=== PATIENT | male | born 1975 | race Caucasian/White ===

== ENCOUNTER 2024-01-14 19:29 | Inpatient (IN) | payer OTHER, MEDICAID, SELFPAY ==
[2024-01-14] VITALS (10 sets, daily range): BP systolic 117–136; BP diastolic 62–78; PULSE 99–114; RESP 17–24; TEMP 37.1–38.8; O2SAT 95–98; BMI 31.3
--- NOTE | 2024-01-14 19:49 | DI.RAD.S_ITS ---
PROCEDURE: XR CHEST 1V INDICATIONS: suspected sepsis TECHNIQUE: One view of the chest was acquired. COMPARISON: None. FINDINGS: Surgical changes and devices: Partially visualized cervical fixation plate. Lungs and pleura: Lungs are clear. No pleural effusions or pneumothorax. Mediastinum: Mediastinal contours appear normal. Heart size is normal. Bones and chest wall: No suspicious bony lesions. Overlying soft tissues appear unremarkable. IMPRESSION: No acute pulmonary process. Dictated by: Yaritza Marie M.D. on 01/14/2024 at 20:11 Approved by: Yaritza Marie M.D. on 01/14/2024 at 20:11
--- NOTE | 2024-01-14 20:00 | ED.SKABFB ---
HPI - Skin/Abscess/Foreign Bdy General Chief complaint: Skin/Abscess/Foreign Body Stated complaint: rt leg swelling, possible spider bites Time Seen by Provider: 01/14/24 19:46 Source: patient Mode of arrival: Wheelchair Limitations: no limitations History of Present Illness HPI narrative: 48-year-old male with history of marijuana use presents for right lower extremity swelling and pain. He states that approximately 2 weeks ago he thinks he may have been bitten by something. His leg has become progressively more painful and swollen and he was here today for evaluation. Found to be febrile in triage. Related Data Allergies Allergy/AdvReac Type Severity Reaction Status Date / Time No Known Drug Allergies Allergy Verified 01/14/24 19:40 Review of Systems Review of Systems Narrative: See HPI Patient History Social History household members: significant other Smoking Status: Never smoker alcohol intake: current Smoking Status: Never smoker Substance Use Type: does not use Exam Initial Vital Signs Initial Vital Signs: Vital Signs Temperature 102 F H 01/14/24 19:40 Pulse Rate 114 H 01/14/24 19:40 Respiratory Rate 18 01/14/24 19:40 Blood Pressure 136/78 01/14/24 19:40 Pulse Oximetry 98 01/14/24 19:40 Oxygen Delivery Method Room Air 01/14/24 19:40 Const: Awake, alert, ill-appearing, nontoxic Cardiac: Tachycardia, regular rhythm RESP: unlabored, clear bilaterally, no wheezing MSK: No deformity, palpable DP pulses, swelling of right lower extremity to knee, compartments soft Skin: Erythema and warmth extending to right knee Neuro: AO x3, CN II-XII grossly intact, moves all extremities Course Orders Ordered: ED Orders 01/14/24 19:49 XR chest 1V Stat EKG-12 Lead Stat RT Consult Eval and Treat NOW 01/14/24 20:15 Complete Blood Count AUTO DIFF Stat Comprehensive Metabolic Panel Stat Lactate (Lactic Acid) Stat Lipase Stat Procalcitonin Stat 01/14/24 20:40 Blood Culture Stat PTT Partial Thromboplastin Rogelio Stat Prothrombin Time INR Stat 01/14/24 21:50 Urine Drug Screen, Rapid Stat Acetaminophen (Acetaminophen 325 Mg Tablet) 650 mg PO Q6H PRN PRN Reason: Fever/Mild Pain (1-3) Calcium Carbonate (Calcium Carbonate 500 Mg Tab) 1,000 mg PO Q4HR PRN PRN Reason: Dyspepsia Enoxaparin Sodium (Enoxaparin 40 Mg/0.4 Ml Syringe) 40 mg SUBCUT DAILY MARY Ceftriaxone Sodium 1,000 mg/ (Sodium Chloride) 100 mls @ 200 mls/hr IV Q24H MARY Vancomycin HCl (Vancomycin) 1,250 mg in 250 mls @ 125 mls/hr IV Q12H MARY Magnesium Hydroxide (Magnesium Hydroxide 30 Ml Udc) 30 ml PO DAILY PRN PRN Reason: Constipation Naloxone HCl (Naloxone 0.4 Mg/Ml Vial) 0.2 mg IV Q2MIN PRN PRN Reason: Opiate Reversal Ondansetron HCl (Ondansetron 4 Mg Odt) 4 mg SL NOW PRN PRN Reason: Nausea And Vomiting Ondansetron HCl (Ondansetron 4 Mg/2 Ml Inj) 4 mg IV Q8HR PRN PRN Reason: Nausea And Vomiting Oxycodone HCl (Oxycodone Ir 5 Mg Tablet) 5 mg PO Q3H PRN PRN Reason: Pain, Moderate (4-6) Oxycodone HCl (Oxycodone Ir 10 Mg Tablet) 10 mg PO Q3H PRN PRN Reason: Pain, Severe (7-10) Vancomycin HCl (Vancomycin Per Pharmacy) 1 request MISC NOW PRN PRN Reason: cellulitis Discontinued Medications Sodium Chloride (Normal Saline 0.9%) 1,000 mls @ 1,000 mls/hr IV BOLUS ONE Stop: 01/14/24 20:48 Last Infusion: 01/14/24 21:52 Dose: Infused Documented By: Admin: 01/14/24 20:46 Dose: 1,000 mls/hr Documented By: LEA Ceftriaxone Sodium 2,000 mg/ (Sodium Chloride) 100 mls @ 200 mls/hr IV NOW ONE Stop: 01/14/24 19:50 Last Infusion: 01/14/24 21:27 Dose: Infused Documented By: Admin: 01/14/24 20:46 Dose: 200 mls/hr Documented By: LEA Vancomycin HCl/Dextrose (Vancomycin) 2,000 mg in 400 mls @ 200 mls/hr IV NOW ONE Stop: 01/14/24 21:49 Last Infusion: 01/15/24 00:09 Dose: Infused Documented By: Admin: 01/14/24 21:43 Dose: 200 mls/hr Documented By: LEA Acetaminophen (Ofirmev) 1,000 mg in 100 mls @ 400 mls/hr IV NOW ONE Stop: 01/14/24 21:21 Last Infusion: 01/14/24 21:44 Dose: Infused Documented By: Admin: 01/14/24 21:20 Dose: 400 mls/hr Documented By: LEA Ketorolac Tromethamine (Ketorolac 30 Mg/Ml Vial) 15 mg IV NOW ONE Stop: 01/14/24 21:08 Last Admin: 01/14/24 21:18 Dose: 15 mg Documented By: LEA Ondansetron HCl (Ondansetron 4 Mg/2 Ml Inj) 4 mg IV NOW PRN PRN Reason: Nausea And Vomiting Last Admin: 01/14/24 20:46 Dose: 4 mg Documented By: LEA Vital Signs Vital signs: Vital Signs - 8 hr 01/14/24 19:40 01/14/24 19:56 01/14/24 20:00 Temperature 102 F H Pulse Rate 114 H 103 H 107 H Respiratory Rate 18 18 Blood Pressure 136/78 Pulse Oximetry 98 98 96 Oxygen Delivery Method Room Air MDM - Skin/Abscess/Foreign Bdy Differential Diagnosis Differential diagnosis: Likely abscess of skin or subcutaneous tissue, viral exanthem and dermatophytosis Lab Data 01/14/24 20:15 01/14/24 20:15 Labs: Lab Results 01/14/24 01/14/24 01/14/24 Range/Units 20:15 20:40 21:50 WBC 14.0 H (4.5-11.0) X10^3/uL RBC 5.06 (4.5-5.9) X10^6/uL Hgb 15.3 (13.5-17.5) g/dL Hct 45.4 (41-53) % MCV 89.7 (80-100) fL MCH 30.2 (26-34) PG MCHC 33.6 (30-36) % RDW 13.8 (11.6-14.8) % Plt Count 228 (150-400) X10^3/uL Neut % (Auto) 89.5 H (50-75) % Lymph % (Auto) 3.8 L (25-40) % [place] % (Auto) 5.4 (3-14) % Eos % (Auto) 1.1 L (2-4) % Baso % (Auto) 0.2 (0-2) % Neut # (Auto) 79088 H (3129-8448) /uL Lymph # (Auto) 500 L (7208-6598) /uL [place] # (Auto) 800 (0-900) /uL Eos # (Auto) 100 (0-450) /uL Baso # (Auto) 0 (0-100) /uL PT 12.2 (9.4-12.5) SECONDS INR 1.1 (0.9-1.3) APTT 32 (25.1-36.5) SECONDS Sodium 140 (137-145) mmol/L Potassium 4.0 (3.4-5.1) mmol/L Chloride 105 (98-107) mmol/L Carbon Dioxide 29 (22-32) mmol/L BUN 21 H (9-20) mg/dL Creatinine 0.94 (0.66-1.25) mg/dL Estimated GFR > 60 (>60) mL/min BUN/Creatinine Ratio 22.3 H (6-22) Glucose 85 (70-100) mg/dL Lactate 1.4 (0.7-2.1) mmol/L Calcium 9.9 (8.4-10.2) mg/dL Total Bilirubin 1.0 (0.2-1.3) mg/dL AST 31 (17-59) IU/L ALT 21 (<50) IU/L Alkaline Phosphatase 79 (38-126) U/L Total Protein 7.4 (6.3-8.2) g/dL Albumin 5.0 (3.5-5.0) g/dL Globulin 2.4 (1.7-4.1) g/dL Albumin/Globulin Ratio 2.1 (1.0-2.8) Lipase 63 (23-300) U/L Procalcitonin 0.05 (<0.5) ng/mL Urine RBC None seen (0-5/HPF) Urine WBC None seen (0-5/HPF) Ur Squamous Epith Cells None seen (0-5/HPF) Urine Bacteria None seen (None) Ur Culture Indicated? Cult not indicated Vol Urine Centrifuged 10ml (spun) U Opiates 300ng/mL cut Negative (Negative) Ur Oxycodone Screen Negative (Negative) Urine Methadone Screen Negative (Negative) Ur Barbiturates Screen Negative (Negative) U Tricyclic Antidepress Negative (Negative) Ur Phencyclidine Scrn Negative (Negative) Ur Amphetamines Screen Negative (Negative) U Methamphetamines Scrn Negative (Negative) Ur MDMA Scrn (Ecstasy) Negative (Negative) U Benzodiazepines Scrn Negative (Negative) Urine Cocaine Screen Negative (Negative) U Marijuana (THC) Screen Positive H (Negative) Urine pH Normal (Normal) Urine Specific [place] Normal (Normal) Ur Creatinine Normal (Normal) Urine Dip Bedside Urine Glucose Negative Bedside Urine Bilirubin - Negative Bedside Urine Ketone +/- 5 Urine Specific [place] 1.015 Bedside Urine Occult Blood - Negative Bedside Urine pH 8.0 Bedside Urine Protein - Negative Bedside Urine Urobilinogen - Negative Bedside Urine Nitrite - Negative Bedside Urine Leukocytes - Negative Esterase MDM Narrative Medical decision making narrative: Two weeks of progressive lower extremity cellulitis. Patient has extensive cellulitic changes extending over the right lower extremity from his foot to his knee. Patient states he was pain up into his calf and groin which has been progressive over the last several days. Low suspicion for DVT based on presentation, this is much more consistent with a cellulitic picture. IV antibiotics ordered. Laboratory work is reviewed. Patient to be admitted for further treatment. Discharge Plan Departure Patient Disposition: Admitted As Inpatient Clinical Impression: Cellulitis Admit Date/Time: 01/14/24 21:53 Admit Provider: Jas Adhikari
[2024-01-14 20:30] LABS: Add Manual Diff / Slide Review NO; Basophils Absolute Auto 0 /uL (0-100); Basophils Percent Auto 0.2 % (0-2); Eosinophils Absolute Auto 100 /uL (0-450); Eosinophils Percent Auto 1.1 % (2-4); Hematocrit 45.4 % (41-53); Hemoglobin 15.3 g/dL (13.5-17.5); Lymphocytes Absolute Auto 500 /uL (1100-4500); Lymphocytes Percent Auto 3.8 % (25-40); Mean Corpuscular HGB Conc 33.6 % (30-36); Mean Corpuscular Hemoglobin 30.2 PG (26-34); Mean Corpuscular Volume 89.7 fL (80-100); Monocytes Absolute Auto 800 /uL (0-900); Monocytes Percent Auto 5.4 % (3-14); Neutrophils Absolute Auto 12600 /uL (1500-7000); Neutrophils Percent Auto 89.5 % (50-75); Platelet Count 228 X10^3/uL (150-400); Red Blood Cell Count 5.06 X10^6/uL (4.5-5.9); Red Cell Distribution Width 13.8 % (11.6-14.8)
[2024-01-14 20:36] LABS: Lactate (Lactic Acid) 1.4 mmol/L (0.7-2.1)
[2024-01-14 20:37] LABS: Alanine Aminotransferase 21 IU/L (<50); Albumin Globulin Ratio 2.1 (1.0-2.8); BUN Creatinine Ratio 22.3 (6-22); Blood Urea Nitrogen 21 mg/dL (9-20); Calcium 9.9 mg/dL (8.4-10.2); Carbon Dioxide 29 mmol/L (22-32); Chloride 105 mmol/L (98-107); Estimated Glomerular Filt Rate > 60 mL/min (>60); Globulin 2.4 g/dL (1.7-4.1); Glucose 85 mg/dL (70-100); Lipase 63 U/L (23-300); Sodium 140 mmol/L (137-145); Total Protein 7.4 g/dL (6.3-8.2)
[2024-01-14 20:38] LABS: Alkaline Phosphatase 79 U/L (38-126); Aspartate Aminotransferase 31 IU/L (17-59); HEMOLYSIS 77 (0-50)
[2024-01-14] MEDS: cefTRIAXone 2,000 MG in SODIUM CHLORIDE 0.9% 100 ML 200 MG IV (20:46)
[2024-01-14] MEDS: ONDANSETRON 4 MG/2 ML INJ IV (20:46)
[2024-01-14] MEDS: SODIUM CHLORIDE 0.9% 1,000 ML 1000 ML IV (20:46)
[2024-01-14 20:54] LABS: Procalcitonin 0.05 ng/mL (<0.5)
--- NOTE | 2024-01-14 20:57 | PC.NURSE ---
R LE with redness/swelling to knee. Pt report pain/tenderness extending up inner thigh to groin starting today.
[2024-01-14 21:02] LABS: INR 1.1 (0.9-1.3); Prothrombin Time 12.2 SECONDS (9.4-12.5)
[2024-01-14 21:04] LABS: PTT Partial Thromboplastin Tim 32 SECONDS (25.1-36.5)
[2024-01-14] MEDS: KETOROLAC 30 MG/ML VIAL 15 MG IV (21:18)
[2024-01-14] MEDS: ACETAMINOPHEN IV 1,000 MG/100 ML VIAL 400 MG IV (21:20)
[2024-01-14] MEDS: VANCOMYCIN 2,000 MG/400 ML PIGGYBACK 200 MG IV (21:43)
[2024-01-14 22:01] LABS: Ur Creatinine Normal (Normal); Ur Specific Gravity Normal (Normal); Urine pH Normal (Normal)
[2024-01-14 22:02] LABS: UR Morphine/Opiate cutoff 300 Negative (Negative); Urine Amphetamines Negative (Negative); Urine Barbiturates Negative (Negative); Urine Benzodiazepines Negative (Negative); Urine Cocaine Negative (Negative); Urine MDMA Negative (Negative); Urine Methadone Negative (Negative); Urine Methamphetamines Negative (Negative); Urine Oxycodone Negative (Negative); Urine Phencyclidine Negative (Negative); Urine Tetrahydrocannabinol Positive (Negative); Urine Tricyclic Antidepressant Negative (Negative)
[2024-01-14 22:10] LABS: Bacteria Urine None Seen; Culture Indicated Urine Cult Not Indicated; RBC Urine None Seen (0-5/HPF); Squamous Epithelial Cell Urine None Seen (0-5/HPF); Urine Volume 10mL (spun); WBC Urine None Seen (0-5/HPF)
--- NOTE | 2024-01-14 23:39 | P.HP_ITS ---
History of Present Illness History of Present Illness Date Patient Seen: 01/14/24 Time Patient Seen: 23:00 Chief complaint: rt leg swelling, possible spider bites Narrative: 48 y/o wo significant PMH, presented to ED with swollen, tender and erythematous RLE. Has several puncture wounds that he blames spiders for. Swelling appeared 2 weeks ago and gradually worsened. He had low grade fever, no chills. Admitted for IV abx. [facility] Social History household members: significant other Smoking Status: Never smoker alcohol intake: current Meds Home Medications and Allergies Allergies Allergy/AdvReac Type Severity Reaction Status Date / Time No Known Drug Allergies Allergy Verified 01/14/24 19:40 Review of Systems Constitutional Comments: fever. No chills Cardiovascular Comments: wo palpitations or chest pain Respiratory Comments: w/o SOB or cough Gastrointestinal Comments: w/o complaints Musculoskeletal Comments: RLE swelling, redness and pain Exam Vital Signs (past 8 hours): - 01/14/24 19:40 01/14/24 19:56 01/14/24 20:00 Temperature 102 F H Pulse Rate 114 H 103 H 107 H Respiratory Rate 18 18 Blood Pressure 136/78 Pulse Oximetry 98 98 96 Oxygen Delivery Method Room Air 01/14/24 22:07 Temperature Pulse Rate 103 H Respiratory Rate 17 Blood Pressure 117/62 Pulse Oximetry 95 Oxygen Delivery Method Room Air Oxygen Delivery Method Room Air Const Other: In no distress HENMT Other: normocephalic Eyes Other: marco Neck Other: supple Resp Other: normal respiratory effort Cardio Other: RRR GI Other: w/o distension Skin Other: erythema, circumferential, swelling, tenderness - RLE Psych Other: appropriate mood Objective Labs 01/15/24 04:35 01/15/24 04:35 Labs: Laboratory Results - last 24 hr 01/14/24 01/14/24 01/14/24 20:15 20:40 21:50 WBC 14.0 H RBC 5.06 Hgb 15.3 Hct 45.4 MCV 89.7 MCH 30.2 MCHC 33.6 RDW 13.8 Plt Count 228 Neut % (Auto) 89.5 H Lymph % (Auto) 3.8 L [place] % (Auto) 5.4 Eos % (Auto) 1.1 L Baso % (Auto) 0.2 Neut # (Auto) 62927 H Lymph # (Auto) 500 L [place] # (Auto) 800 Eos # (Auto) 100 Baso # (Auto) 0 PT 12.2 INR 1.1 APTT 32 Sodium 140 Potassium 4.0 Chloride 105 Carbon Dioxide 29 BUN 21 H Creatinine 0.94 Estimated GFR > 60 BUN/Creatinine Ratio 22.3 H Glucose 85 Lactate 1.4 Calcium 9.9 Total Bilirubin 1.0 AST 31 ALT 21 Alkaline Phosphatase 79 Total Protein 7.4 Albumin 5.0 Globulin 2.4 Albumin/Globulin Ratio 2.1 Lipase 63 Procalcitonin 0.05 Urine RBC None seen Urine WBC None seen Ur Squamous Epith Cells None seen Urine Bacteria None seen Ur Culture Indicated? Cult not indicated Vol Urine Centrifuged 10ml (spun) U Opiates 300ng/mL cut Negative Ur Oxycodone Screen Negative Urine Methadone Screen Negative Ur Barbiturates Screen Negative U Tricyclic Antidepress Negative Ur Phencyclidine Scrn Negative Ur Amphetamines Screen Negative U Methamphetamines Scrn Negative Ur MDMA Scrn (Ecstasy) Negative U Benzodiazepines Scrn Negative Urine Cocaine Screen Negative U Marijuana (THC) Screen Positive H Urine pH Normal Urine Specific [place] Normal Ur Creatinine Normal Assessment & Plan Assessment and plan (1) Cellulitis of right lower leg: Status: Acute Assessment & Plan narrative: RLE Cellulitis - elevate leg - Vancomycin, Rocephin - pain management - not septic but progressive and extensive, circumferential needs few doses of IV abx
[2024-01-15] VITALS (33 sets, daily range): BP systolic 111–141; BP diastolic 68–90; PULSE 78–101; RESP 15–33; TEMP 37–38.1; O2SAT 94–100
[2024-01-15] MEDS: OXYCODONE IR 5 MG TABLET PO ×2 (02:25→08:32)
[2024-01-15 04:45] LABS: Add Manual Diff / Slide Review NO; Basophils Absolute Auto 0 /uL (0-100); Basophils Percent Auto 0.2 % (0-2); Eosinophils Absolute Auto 0 /uL (0-450); Eosinophils Percent Auto 0.2 % (2-4); Hematocrit 42.3 % (41-53); Hemoglobin 14.2 g/dL (13.5-17.5); Lymphocytes Absolute Auto 500 /uL (1100-4500); Lymphocytes Percent Auto 3.4 % (25-40); Mean Corpuscular HGB Conc 33.6 % (30-36); Mean Corpuscular Hemoglobin 30.1 PG (26-34); Mean Corpuscular Volume 89.6 fL (80-100); Monocytes Absolute Auto 900 /uL (0-900); Monocytes Percent Auto 6.2 % (3-14); Neutrophils Absolute Auto 12900 /uL (1500-7000); Platelet Count 182 X10^3/uL (150-400); Red Blood Cell Count 4.73 X10^6/uL (4.5-5.9); White Blood Cell Count 14.4 X10^3/uL (4.5-11.0)
[2024-01-15 05:08] LABS: BUN Creatinine Ratio 18.5 (6-22); Blood Urea Nitrogen 17 mg/dL (9-20); Calcium 8.9 mg/dL (8.4-10.2); Carbon Dioxide 28 mmol/L (22-32); Chloride 109 mmol/L (98-107); Estimated Glomerular Filt Rate > 60 mL/min (>60); Glucose 115 mg/dL (70-100); HEMOLYSIS < 15 (0-50); Potassium 3.9 mmol/L (3.4-5.1); Sodium 140 mmol/L (137-145)
--- NOTE | 2024-01-15 07:17 | PM.PN.1 ---
Subjective Subjective Interval history: Admitting doctor: 48 y/o wo significant PMH, presented to ED with swollen, tender and erythematous RLE. Has several puncture wounds that he blames spiders for. Swelling appeared 2 weeks ago and gradually worsened. He had low grade fever, no chills. Admitted for IV abx. When positive blood culture, Gram-positive cocci in chains. Today: He denies history of MRSA, he notes his right leg had a spider bite about a week ago and he has now had redness and increased swelling over the lower leg below the knee. He would some tracking up the inside of the groin and tenderness to his lymph nodes. He has had some fevers. He denies a history of cellulitis. He does have athlete's foot with chronic excoriation in between multiple toes on the right foot and the top of the foot. He has not been treating this with any ointments or other remedies. He is otherwise healthy, denies drug or alcohol use. He lives in town with his girlfriend. Exam Vital Signs (past 8 hours): - 01/14/24 23:30 01/15/24 00:00 01/15/24 00:30 Temperature Pulse Rate 104 H 93 H 86 Respiratory Rate 24 17 23 Blood Pressure Pulse Oximetry Oxygen Delivery Method 01/15/24 01:00 01/15/24 01:30 01/15/24 02:28 Temperature 98.6 F Pulse Rate 78 78 89 Respiratory Rate 15 20 15 Blood Pressure 111/73 Pulse Oximetry 99 Oxygen Delivery Method 01/15/24 06:25 Temperature 99.1 F Pulse Rate 91 H Respiratory Rate 22 Blood Pressure 120/74 Pulse Oximetry 97 Oxygen Delivery Method Room Air Oxygen Delivery Method Room Air Narrative Exam Narrative: NAD, alert and oriented. Fluent speech. Lungs are clear, normal rate and effort. Heart is regular, no murmur gallop or rub. Abdomen is soft, non distended. Extremities: The right leg is swollen and red below the knee to the ankle. The foot is notable for excoriations in between multiple toe is from his tinea pedis. The leg is diffusely tender. There is no crepitus or focal fluctuance. It is scarlet like rash. He was have tenderness in the medial aspect of his right thigh. The left lower extremity is mildly erythematous below the knee. He is nontender. Objective Labs 01/15/24 04:35 01/15/24 04:35 Labs: Laboratory Results - last 24 hr 01/14/24 01/14/24 01/14/24 20:15 20:40 21:50 WBC 14.0 H RBC 5.06 Hgb 15.3 Hct 45.4 MCV 89.7 MCH 30.2 MCHC 33.6 RDW 13.8 Plt Count 228 Neut % (Auto) 89.5 H Lymph % (Auto) 3.8 L [place] % (Auto) 5.4 Eos % (Auto) 1.1 L Baso % (Auto) 0.2 Neut # (Auto) 67782 H Lymph # (Auto) 500 L [place] # (Auto) 800 Eos # (Auto) 100 Baso # (Auto) 0 PT 12.2 INR 1.1 APTT 32 Sodium 140 Potassium 4.0 Chloride 105 Carbon Dioxide 29 BUN 21 H Creatinine 0.94 Estimated GFR > 60 BUN/Creatinine Ratio 22.3 H Glucose 85 Lactate 1.4 Calcium 9.9 Total Bilirubin 1.0 AST 31 ALT 21 Alkaline Phosphatase 79 Total Protein 7.4 Albumin 5.0 Globulin 2.4 Albumin/Globulin Ratio 2.1 Lipase 63 Procalcitonin 0.05 Urine RBC None seen Urine WBC None seen Ur Squamous Epith Cells None seen Urine Bacteria None seen Ur Culture Indicated? Cult not indicated Vol Urine Centrifuged 10ml (spun) U Opiates 300ng/mL cut Negative Ur Oxycodone Screen Negative Urine Methadone Screen Negative Ur Barbiturates Screen Negative U Tricyclic Antidepress Negative Ur Phencyclidine Scrn Negative Ur Amphetamines Screen Negative U Methamphetamines Scrn Negative Ur MDMA Scrn (Ecstasy) Negative U Benzodiazepines Scrn Negative Urine Cocaine Screen Negative U Marijuana (THC) Screen Positive H Urine pH Normal Urine Specific [place] Normal Ur Creatinine Normal 01/15/24 04:35 WBC 14.4 H RBC 4.73 Hgb 14.2 Hct 42.3 MCV 89.6 MCH 30.1 MCHC 33.6 RDW 14.0 Plt Count 182 Neut % (Auto) 90.0 H Lymph % (Auto) 3.4 L [place] % (Auto) 6.2 Eos % (Auto) 0.2 L Baso % (Auto) 0.2 Neut # (Auto) 21271 H Lymph # (Auto) 500 L [place] # (Auto) 900 Eos # (Auto) 0 Baso # (Auto) 0 PT INR APTT Sodium 140 Potassium 3.9 Chloride 109 H Carbon Dioxide 28 BUN 17 Creatinine 0.92 Estimated GFR > 60 BUN/Creatinine Ratio 18.5 Glucose 115 H Lactate Calcium 8.9 Total Bilirubin AST ALT Alkaline Phosphatase Total Protein Albumin Globulin Albumin/Globulin Ratio Lipase Procalcitonin Urine RBC Urine WBC Ur Squamous Epith Cells Urine Bacteria Ur Culture Indicated? Vol Urine Centrifuged U Opiates 300ng/mL cut Ur Oxycodone Screen Urine Methadone Screen Ur Barbiturates Screen U Tricyclic Antidepress Ur Phencyclidine Scrn Ur Amphetamines Screen U Methamphetamines Scrn Ur MDMA Scrn (Ecstasy) U Benzodiazepines Scrn Urine Cocaine Screen U Marijuana (THC) Screen Urine pH Urine Specific [place] Ur Creatinine PFSH Social History household members: significant other Smoking Status: Never smoker alcohol intake: current Assessment & Plan Assessment & Plan narrative: 1. Right leg cellulitis, present on admission and active. 2. Possible strep bacteremia, present on admission and active 3. Obesity class 1 with BMI of 31, present on admission and active. Plan: -continue antibiotics, nares screen for MRSA. -elevate leg. Full resuscitation Proxy decision maker: Girlfriend, Rosa. Estimated date of discharge is January 15.
[2024-01-15] MEDS: ENOXAPARIN 40 MG/0.4 ML SYRINGE SUBCUT (08:25)
[2024-01-15] MEDS: VANCOMYCIN 1,500 MG/300 ML PIGGYBACK 200 MG IV ×2 (08:25→22:37)
[2024-01-15 10:48] LABS: MRSA (Nasal) PCR NOT DETECTED (Not Detect)
[2024-01-15 11:40] LABS: Acinetobacter calcoa-baumannii Not Detected (Not Detect); Bacteroides fragilis Not Detected (Not Detect); Candida albicans Not Detected (Not Detect); Candida auris Not Detected (Not Detect); Candida glabrata Not Detected (Not Detect); Candida krusei Not Detected (Not Detect); Candida parapsilosis Not Detected (Not Detect); Candida tropicalis Not Detected (Not Detect); Cryptococcus neoformans/gatti Not Detected (Not Detect); Enterobacter cloacae complex Not Detected (Not Detect); Enterobacterales Not Detected (Not Detect); Enterococcus faecalis Not Detected (Not Detect); Enterococcus faecium Not Detected (Not Detect); Haemophilus influenzae Not Detected (Not Detect); Klebsiella aerogenes Not Detected (Not Detect); Listeria monocytogenes Not Detected (Not Detect); Neisseria meningitidis Not Detected (Not Detect); Proteus species Not Detected (Not Detect); Pseudomonas aeruginosa Not Detected (Not Detect); Salmonella species Not Detected (Not Detect); Serratia marcescens Not Detected (Not Detect); Staphylococcus epidermidis Not Detected (Not Detect); Staphylococcus lugdunensis Not Detected (Not Detect); Staphylococcus species Not Detected (Not Detect); Stenotrophomonas maltophilia Not Detected (Not Detect); Streptococcus agalactiae (Gr B Not Detected (Not Detect); Streptococcus pneumonia Not Detected (Not Detect); Streptococcus pyogenes (Gr A) Not Detected (Not Detect); Streptococcus species Detected (Not Detect)
[2024-01-15] MEDS: ACETAMINOPHEN 325 MG TABLET 650 MG PO ×2 (13:59→20:14)
--- NOTE | 2024-01-15 14:40 | PC.NURSE ---
Day shift: In room from ED at approx 1440. A&Ox4. Calm and cooperative. Has been seen by Dr Bell. On contact for gram pos cocci. MRSA swap pending. VS WNL. RA 97%. RLE is red and Pt states he also has Athletes foot. Oriented to room and call light. Agrees to not get OOB w/o help from staff. Call light in reach.
[2024-01-15] MEDS: OXYCODONE IR 10 MG TABLET PO ×2 (14:42→20:14)
[2024-01-15 16:04] LABS: MRSA (Nasal) PCR NOT DETECTED (Not Detect)
[2024-01-15] MEDS: cefTRIAXone 1,000 MG in SODIUM CHLORIDE 0.9% 100 ML 200 MG IV (18:11)
[2024-01-16] VITALS: BP 120/84; PULSE 84; RESP 17; TEMP 37.1; O2SAT 96
[2024-01-16 04:00] VITALS: BP 140/81; PULSE 91; RESP 17; TEMP 37.3; O2SAT 95
[2024-01-16] MEDS: OXYCODONE IR 10 MG TABLET PO ×4 (04:47→20:37)
[2024-01-16] MEDS: ACETAMINOPHEN 325 MG TABLET 650 MG PO ×2 (04:47→13:48)
--- NOTE | 2024-01-16 06:01 | PC.NURSE ---
bilingual social worker: Patient is AxOx4, VSS, complaints of 7/10 pain in RLE relieved w/ ordered PO medications. RLE is red & edematous, leg is elevated. Temp is elevated at 99.2, tylenol given & ice pack placed. Able to reposition self in bed. Uses urinal independently. IV abx infused as ordered in right forearm. Oriented to call-light. Plan of care ongoing.
[2024-01-16 08:00] VITALS: BP 117/79; PULSE 68; RESP 20; TEMP 36.8; O2SAT 98
[2024-01-16 09:05] LABS: Add Manual Diff / Slide Review NO; Basophils Absolute Auto 0 /uL (0-100); Basophils Percent Auto 0.3 % (0-2); Eosinophils Absolute Auto 100 /uL (0-450); Eosinophils Percent Auto 1.1 % (2-4); Hematocrit 41.2 % (41-53); Lymphocytes Absolute Auto 800 /uL (1100-4500); Lymphocytes Percent Auto 11.7 % (25-40); Mean Corpuscular Hemoglobin 30.4 PG (26-34); Mean Corpuscular Volume 89.5 fL (80-100); Monocytes Absolute Auto 800 /uL (0-900); Monocytes Percent Auto 11.4 % (3-14); Neutrophils Absolute Auto 5400 /uL (1500-7000); Neutrophils Percent Auto 75.5 % (50-75); Platelet Count 175 X10^3/uL (150-400); Red Blood Cell Count 4.61 X10^6/uL (4.5-5.9); Red Cell Distribution Width 13.9 % (11.6-14.8); White Blood Cell Count 7.2 X10^3/uL (4.5-11.0)
[2024-01-16] MEDS: ENOXAPARIN 40 MG/0.4 ML SYRINGE SUBCUT (09:10)
[2024-01-16] MEDS: cefTRIAXone 2,000 MG in SODIUM CHLORIDE 0.9% 100 ML 200 MG IV (09:10)
[2024-01-16 09:16] LABS: BUN Creatinine Ratio 15.2 (6-22); Blood Urea Nitrogen 12 mg/dL (9-20); Carbon Dioxide 23 mmol/L (22-32); Chloride 108 mmol/L (98-107); Estimated Glomerular Filt Rate > 60 mL/min (>60); Glucose 87 mg/dL (70-100); HEMOLYSIS 38 (0-50); Sodium 134 mmol/L (137-145)
[2024-01-16 09:21] LABS: Vancomycin Trough 7.8 ug/mL (10-20)
[2024-01-16] MEDS: VANCOMYCIN TROUGH 1 REQUEST MISC (09:38)
[2024-01-16] MEDS: VANCOMYCIN 1,500 MG/300 ML PIGGYBACK 200 MG IV ×2 (10:01→17:36)
--- NOTE | 2024-01-16 10:55 | DI.US.S_ITS ---
PROCEDURE: US PERIPH VENOUS LOW EXTREM RT INDICATIONS: EDEMA TECHNIQUE: Real-time imaging, as well as color and pulse Doppler interrogation, were performed of the lower extremity deep veins from the inguinal ligament to the popliteal fossa, with documentation of the visualized calf veins. COMPARISON: None. FINDINGS: The common femoral, femoral, popliteal, and the visualized calf veins are normally compressible, and free of intraluminal thrombus. Color and pulse Doppler demonstrate normal phasic intraluminal flow. There is normal augmentation response to distal compression maneuver. IMPRESSION: No findings of lower extremity deep venous thrombosis. Dictated by: Abraham Jenkins M.D. on 01/16/2024 at 12:28 Approved by: Abraham Jenkins M.D. on 01/16/2024 at 12:28
--- NOTE | 2024-01-16 10:56 | P.PN_ITS ---
Subjective Subjective Date Patient Seen: 01/16/24 Time Patient Seen: 10:35 Interval history: Admitting doctor: 48 y/o wo significant PMH, presented to ED with swollen, tender and erythematous RLE. Has several puncture wounds that he blames spiders for. Swelling appeared 2 weeks ago and gradually worsened. He had low grade fever, no chills. Admitted for IV abx. Today: He notes his right leg looks a little more red and swollen and tender with streaking up the medial thigh. He has no history of cellulitis or MRSA. He is chronic right sided athlete's foot but feels that it was a spider bite on the right distal lateral ayon that precipitated this infection. He is chronic swelling on the left side from prior ankle surgery but no history of swelling on the right. No history of DVT. He is on DVT prophylaxis. Exam Vital Signs (past 8 hours): - 01/16/24 04:00 01/16/24 08:00 Temperature 99.2 F 98.2 F Pulse Rate 91 H 68 Respiratory Rate 17 20 Blood Pressure 140/81 117/79 Pulse Oximetry 95 98 Oxygen Flow Rate 0 0 Oxygen Delivery Method Room Air Oxygen Flow Rate 0 Narrative Exam Narrative: GENERAL: This is a well-nourished, well-developed patient, in no apparent distress. EYES: Pupils equal round and reactive. Extraocular motions intact. No scleral icterus. No injection or drainage. ENT: Mucous membranes pink and moist. NECK: Supple, nontender, no meningeal signs. CARDIOVASCULAR: Regular rate and rhythm without murmurs, gallops, or rubs. RESPIRATORY: Clear to auscultation. GASTROINTESTINAL: Abdomen soft, non-tender, nondistended. EXTREMITIES: 1+ right-sided edema, trace left-sided edema BACK: Nontender without deformity or crepitance. No flank tenderness. NEUROLOGIC: Alert, oriented, speech fluent, full upper and lower motor strength, no focal deficits evident. DERMATOLOGIC: Bright red florid rash with erythema and induration from the right ankle, where he has multiple excoriations in the right distal lateral ayon. He also has erythematous and excoriated change between the toes, though there is a clear gap of normal skin between this and his rash from the ankle, which extends to the proximal calf and ayon and notable for streaking and tenderness of the medial thigh. No right groin adenopathy. Objective Labs 01/16/24 08:50 01/16/24 08:22 Labs: Laboratory Results - last 24 hr 01/14/24 01/15/24 01/16/24 20:15 14:45 08:22 WBC RBC Hgb Hct MCV MCH MCHC RDW Plt Count Neut % (Auto) Lymph % (Auto) [place] % (Auto) Eos % (Auto) Baso % (Auto) Neut # (Auto) Lymph # (Auto) [place] # (Auto) Eos # (Auto) Baso # (Auto) Sodium 134 L Potassium 4.0 Chloride 108 H Carbon Dioxide 23 BUN 12 Creatinine 0.79 Estimated GFR > 60 BUN/Creatinine Ratio 15.2 Glucose 87 Calcium 9.0 Nasal Screen MRSA (PCR) Not detected Vancomycin Trough 7.8 L A.calcoaceticus-baumannii cmplx PCR Not detected Bacteroides fragilis Not detected Heavenly albicans (PCR) Not detected Heavenly auris (PCR) Not detected C. glabrata (PCR) Not detected C. krusei (PCR) Not detected C. parapsilosis (PCR) Not detected C. tropicalis (PCR) Not detected C. neoform/gattii (PCR) Not detected Enterobacterales (PCR) Not detected E. cloacae complex PCR Not detected Enterococc faecalis PCR Not detected Enterococc faecium PCR Not detected E. coli (PCR) Not detected H. influenzae (PCR) Not detected Klebsiella aerogenes (PCR) Not detected Klebsiella oxytoca PCR Not detected Klebsiella pneumoniae Not detected List. monocytogenes PCR Not detected N. meningitidis (PCR) Not detected Proteus species (PCR) Not detected Salmonella spp. (PCR) Not detected Serratia marcescens PCR Not detected Staphylococcus sp PCR Not detected Staph aureus (PCR) Not detected mecA/C & MREJ Resist Gene Not applicable mecA/C-Methicil Resis Gene Not applicable mcr-1 Col[place]in Res Gene PCR Not applicable Staph epidermidis (PCR) Not detected Staph lugdunensis PCR Not detected S. maltophilia (PCR) Not detected Streptococcus sp PCR Detected Group A Strep (PCR) Not detected Strep agalactiae (PCR) Not detected Strep pneumoniae (PCR) Not detected P. aeruginosa (PCR) Not detected Alexis/B-Vanco Res Genes Not applicable blaIMP Car res Gene PCR Not applicable KPC-Carbap Res Gene PCR Not applicable blaNDM Car Res Gene PCR Not applicable OXA-48 Carbapenem Resis Gene (PCR) Not applicable blaVIM Car Res Gene PCR Not applicable CTX-M Gene Resistance (PCR) Not applicable 01/16/24 08:50 WBC 7.2 RBC 4.61 Hgb 14.0 Hct 41.2 MCV 89.5 MCH 30.4 MCHC 34.0 RDW 13.9 Plt Count 175 Neut % (Auto) 75.5 H Lymph % (Auto) 11.7 L [place] % (Auto) 11.4 Eos % (Auto) 1.1 L Baso % (Auto) 0.3 Neut # (Auto) 5400 Lymph # (Auto) 800 L [place] # (Auto) 800 Eos # (Auto) 100 Baso # (Auto) 0 Sodium Potassium Chloride Carbon Dioxide BUN Creatinine Estimated GFR BUN/Creatinine Ratio Glucose Calcium Nasal Screen MRSA (PCR) Vancomycin Trough A.calcoaceticus-baumannii cmplx PCR Bacteroides fragilis Heavenly albicans (PCR) Heavenly auris (PCR) C. glabrata (PCR) C. krusei (PCR) C. parapsilosis (PCR) C. tropicalis (PCR) C. neoform/gattii (PCR) Enterobacterales (PCR) E. cloacae complex PCR Enterococc faecalis PCR Enterococc faecium PCR E. coli (PCR) H. influenzae (PCR) Klebsiella aerogenes (PCR) Klebsiella oxytoca PCR Klebsiella pneumoniae List. monocytogenes PCR N. meningitidis (PCR) Proteus species (PCR) Salmonella spp. (PCR) Serratia marcescens PCR Staphylococcus sp PCR Staph aureus (PCR) mecA/C & MREJ Resist Gene mecA/C-Methicil Resis Gene mcr-1 Colistin Res Gene PCR Staph epidermidis (PCR) Staph lugdunensis PCR S. maltophilia (PCR) Streptococcus sp PCR Group A Strep (PCR) Strep agalactiae (PCR) Strep pneumoniae (PCR) P. aeruginosa (PCR) Alexis/B-Vanco Res Genes blaIMP Car res Gene PCR KPC-Carbap Res Gene PCR blaNDM Car Res Gene PCR OXA-48 Carbapenem Resis Gene (PCR) blaVIM Car Res Gene PCR CTX-M Gene Resistance (PCR) [facility] Social History household members: significant other Smoking Status: Never smoker alcohol intake: current Assessment & Plan Assessment & Plan narrative: 1. Right leg cellulitis, present on admission and active. Increased swelling and pain noted on the right. Obtain ultrasound to rule out DVT. Negative screen for MRSA. 2. Blood culture preliminary positive for Gram-positive cocci, suspect contaminant (1 of 2 cultures) 3. Obesity class 1 with BMI of 31, present on admission and active. Plan: -continue antibiotics -ultrasound right leg, rule out DVT -elevate leg. -continued inpatient hospitalization indicated until significant improvement, then switch to oral antibiotic and outpatient therapy -his former primary care provider is in [place]. He will need a local primary care provider for follow-up COVID-19 COVID-19 status: Not tested [facility] - Meds 'Current medications' to include all prescriptions, [id number] products, herbals, cannabis/cannabidiol products, and vitamin/mineral/dietary (nutritional) supplements. I have utilized all available resources to obtain, update, or review the patient?s current medications. [If Yes, STOP here]: Yes PROFEE Charge codes Subsequent inpatient/observation care: 00635
[2024-01-16 12:00] VITALS: BP 128/88; PULSE 81; RESP 20; TEMP 36.9; O2SAT 98
--- NOTE | 2024-01-16 15:44 | CM.DANOTE ---
Patient is a 48 yo male who was admitted OBS Status on 01/14/24 for Cellulitis. Pt has ANURADHA MOREAU and THOMPSON for insurance and his PCP was in [place]. EMR was reviewed. Per MD, pt with possible spider bites and cellulitis from punctures and admitted for IV-Abx with plan of transition to PO abx at discharge. UDS+ for THC. SW met briefly bedside with pt and explained role and he confirms he moved up from [place] and lives with his girlfriend in [place] and pt is active and independent, works at the [employer], drives and does not use DME for ambulation. Pt does not anticipate any needs at d/c and preference is home with girlfriend and plans to establish with PCP locally. JESS Burr
[2024-01-16 16:00] VITALS: BP 126/80; PULSE 79; RESP 16; TEMP 37.1; O2SAT 99
[2024-01-16 20:16] VITALS: BP 129/86; PULSE 79; RESP 16; TEMP 37.2; O2SAT 98
[2024-01-16] MEDS: ONDANSETRON 4 MG/2 ML INJ IV (20:36)
[2024-01-17] VITALS (7 sets, daily range): BP systolic 122–135; BP diastolic 73–85; PULSE 65–79; RESP 16–19; TEMP 36.3–37.2; O2SAT 95–100
[2024-01-17] MEDS: VANCOMYCIN 1,500 MG/300 ML PIGGYBACK 200 MG IV ×3 (02:21→17:37)
[2024-01-17 04:47] LABS: Add Manual Diff / Slide Review NO; Basophils Absolute Auto 0 /uL (0-100); Basophils Percent Auto 0.5 % (0-2); Eosinophils Absolute Auto 200 /uL (0-450); Eosinophils Percent Auto 3.3 % (2-4); Hemoglobin 14.1 g/dL (13.5-17.5); Lymphocytes Absolute Auto 700 /uL (1100-4500); Lymphocytes Percent Auto 10.4 % (25-40); Mean Corpuscular HGB Conc 34.3 % (30-36); Mean Corpuscular Hemoglobin 30.7 PG (26-34); Mean Corpuscular Volume 89.5 fL (80-100); Monocytes Absolute Auto 600 /uL (0-900); Monocytes Percent Auto 8.7 % (3-14); Neutrophils Absolute Auto 5200 /uL (1500-7000); Neutrophils Percent Auto 77.1 % (50-75); Platelet Count 179 X10^3/uL (150-400); Red Blood Cell Count 4.58 X10^6/uL (4.5-5.9); Red Cell Distribution Width 14.1 % (11.6-14.8); White Blood Cell Count 6.8 X10^3/uL (4.5-11.0)
[2024-01-17 04:53] LABS: BUN Creatinine Ratio 15.1 (6-22); Blood Urea Nitrogen 13 mg/dL (9-20); Calcium 8.9 mg/dL (8.4-10.2); Carbon Dioxide 23 mmol/L (22-32); Chloride 107 mmol/L (98-107); Estimated Glomerular Filt Rate > 60 mL/min (>60); Glucose 99 mg/dL (70-100); HEMOLYSIS < 15 (0-50); Potassium 3.9 mmol/L (3.4-5.1); Sodium 136 mmol/L (137-145)
[2024-01-17] MEDS: OXYCODONE IR 10 MG TABLET PO ×2 (07:40→19:27)
[2024-01-17] MEDS: cefTRIAXone 2,000 MG in SODIUM CHLORIDE 0.9% 100 ML 200 MG IV (07:40)
[2024-01-17] MEDS: ENOXAPARIN 40 MG/0.4 ML SYRINGE SUBCUT (09:11)
--- NOTE | 2024-01-17 10:09 | PC.NURSE ---
Pt arousable A&O, states pain is a 7. Pain med given per orders. Reassess Pt gives it a 5. Pt taking b'fas, more talkative as the morning progresses.
[2024-01-17 10:16] LABS: Vancomycin Trough 12.5 ug/mL (10-20)
[2024-01-17] MEDS: VANCOMYCIN TROUGH 1 REQUEST MISC (11:00)
--- NOTE | 2024-01-17 15:46 | CM.DPC ---
DCP Continued Reviewed EMR and team rounds for pt?s medical status. PROCUREMENT BUYER entered room and introduced self and role. Pt was found, lying upright in bed, seemed guarded initially. PROCUREMENT BUYER discussed establishing PCP in area and pt stated that he already has a PCP in [place] (Dr. Lana Coffman at [facility]). Pt did not want to establish a new one today. Pt declined PROCUREMENT BUYER's offer of a link to [facility] primary care team at this time. Pt denied any pending discharge needs at this time. Plan: Pt to stay one more night for continued antibiotic treatment. CM Team will continue to follow for coordination of discharge plans. CATHERINE Gay
--- NOTE | 2024-01-17 15:51 | PM.PN.1 ---
Subjective Subjective Interval history: RLE still warm, red and swollen. Swelling has improved however and patient notes his calf is less taught. Exam Vital Signs (past 8 hours): - 01/17/24 08:00 01/17/24 12:00 Temperature 98.5 F 97.4 F L Pulse Rate 75 77 Respiratory Rate 19 17 Blood Pressure 126/82 125/73 Pulse Oximetry 97 98 Oxygen Delivery Method Room Air Oxygen Flow Rate 0 Narrative Exam Narrative: GENERAL: This is a well-nourished, well-developed patient, in no apparent distress. EYES: Pupils equal round and reactive. Extraocular motions intact. No scleral icterus. No injection or drainage. ENT: Mucous membranes pink and moist. NECK: Supple, nontender, no meningeal signs. CARDIOVASCULAR: Regular rate and rhythm without murmurs, gallops, or rubs. RESPIRATORY: Clear to auscultation. GASTROINTESTINAL: Abdomen soft, non-tender, nondistended. EXTREMITIES: 1+ right-sided edema, trace left-sided edema BACK: Nontender without deformity or crepitance. No flank tenderness. NEUROLOGIC: Alert, oriented, speech fluent, full upper and lower motor strength, no focal deficits evident. DERMATOLOGIC: Bright red florid rash with erythema and induration from the right ankle, where he has multiple excoriations in the right distal lateral ayon. He also has erythematous and excoriated change between the toes, though there is a clear gap of normal skin between this and his rash from the ankle, which extends to the proximal calf and ayon and notable for streaking and tenderness of the medial thigh. No right groin adenopathy. Objective Labs 01/17/24 04:25 01/17/24 04:25 Labs: Laboratory Results - last 24 hr 01/17/24 01/17/24 04:25 09:43 WBC 6.8 RBC 4.58 Hgb 14.1 Hct 41.0 MCV 89.5 MCH 30.7 MCHC 34.3 RDW 14.1 Plt Count 179 Neut % (Auto) 77.1 H Lymph % (Auto) 10.4 L [place] % (Auto) 8.7 Eos % (Auto) 3.3 Baso % (Auto) 0.5 Neut # (Auto) 5200 Lymph # (Auto) 700 L [place] # (Auto) 600 Eos # (Auto) 200 Baso # (Auto) 0 Sodium 136 L Potassium 3.9 Chloride 107 Carbon Dioxide 23 BUN 13 Creatinine 0.86 Estimated GFR > 60 BUN/Creatinine Ratio 15.1 Glucose 99 Calcium 8.9 Vancomycin Trough 12.5 PFSH Social History household members: significant other Smoking Status: Never smoker alcohol intake: current Assessment & Plan Assessment & Plan narrative: 1. Right leg cellulitis, present on admission and active. Increased swelling and pain noted on the right. Obtain ultrasound to rule out DVT. Negative screen for MRSA. 2. Blood culture preliminary positive for Gram-positive cocci, suspect contaminant (1 of 2 cultures) 3. Obesity class 1 with BMI of 31, present on admission and active. Plan: -continue antibiotics -no DVT on LE US -elevate leg. -continued inpatient hospitalization indicated until significant improvement, then switch to oral antibiotic and outpatient therapy -his former primary care provider is in [place]. He will need a local primary care provider for follow-up. Dispo: Home in 1-2 days. COVID-19 COVID-19 status: Not tested
[2024-01-17] MEDS: ACETAMINOPHEN 325 MG TABLET 650 MG PO (19:25)
[2024-01-18] MEDS: OXYCODONE IR 10 MG TABLET PO ×4 (01:12→19:59)
[2024-01-18] MEDS: VANCOMYCIN 1,500 MG/300 ML PIGGYBACK 200 MG IV (01:13)
[2024-01-18 04:31] VITALS: BP 112/74; PULSE 66; RESP 17; TEMP 36.8; O2SAT 96
[2024-01-18 05:21] LABS: Add Manual Diff / Slide Review NO; Basophils Absolute Auto 0 /uL (0-100); Basophils Percent Auto 0.7 % (0-2); Eosinophils Absolute Auto 200 /uL (0-450); Eosinophils Percent Auto 3.7 % (2-4); Hematocrit 41.6 % (41-53); Hemoglobin 14.2 g/dL (13.5-17.5); Lymphocytes Absolute Auto 1100 /uL (1100-4500); Mean Corpuscular HGB Conc 34.1 % (30-36); Mean Corpuscular Hemoglobin 30.5 PG (26-34); Mean Corpuscular Volume 89.3 fL (80-100); Monocytes Absolute Auto 800 /uL (0-900); Monocytes Percent Auto 13.7 % (3-14); Neutrophils Absolute Auto 3600 /uL (1500-7000); Neutrophils Percent Auto 62.9 % (50-75); Platelet Count 208 X10^3/uL (150-400); Red Blood Cell Count 4.65 X10^6/uL (4.5-5.9); Red Cell Distribution Width 13.7 % (11.6-14.8); White Blood Cell Count 5.8 X10^3/uL (4.5-11.0)
[2024-01-18 05:27] LABS: BUN Creatinine Ratio 16.5 (6-22); Blood Urea Nitrogen 14 mg/dL (9-20); Calcium 9.3 mg/dL (8.4-10.2); Carbon Dioxide 26 mmol/L (22-32); Chloride 106 mmol/L (98-107); Estimated Glomerular Filt Rate > 60 mL/min (>60); Glucose 95 mg/dL (70-100); HEMOLYSIS < 15 (0-50); Potassium 3.8 mmol/L (3.4-5.1); Sodium 138 mmol/L (137-145)
[2024-01-18 07:51] VITALS: BP 124/84; PULSE 74; RESP 20; TEMP 36.9; O2SAT 98
[2024-01-18] MEDS: ENOXAPARIN 40 MG/0.4 ML SYRINGE SUBCUT (09:49)
[2024-01-18] MEDS: cefTRIAXone 2,000 MG in SODIUM CHLORIDE 0.9% 100 ML 200 MG IV (09:49)
[2024-01-18] MEDS: ACETAMINOPHEN 325 MG TABLET 650 MG PO ×2 (09:59→16:13)
--- NOTE | 2024-01-18 11:32 | PC.NURSE ---
Addendum entered by Mary Malin R.N. 01/18/24 16:34: pt sitting up in bed talking on phone ,in no distress, right leg pain up to 710 again. medicated with tylenol and oxy Original Note: patient up to shower this am tolerated well, right leg cellulitis/spiderbite reddness has reduced per pt, elevated extremity and medicated with oxy 10mg po for pain 10, antibx infusing.
[2024-01-18 11:44] VITALS: BP 129/86; PULSE 79; RESP 20; TEMP 36.2; O2SAT 98
--- NOTE | 2024-01-18 11:55 | CM.DPC ---
Addendum entered by Rachel Franco R.N. 01/18/24 13:01: Called over at [facility], spoke to mervat Butt, about referral, she will update José Antonio tomorrow. Original Note: DCP Cont: Was informed by hospitalist today that patient most likely will need to be on IV ABO for two weeks, mentioned Rocephin q24 hours. Asked hospitalist who would follow, stated that most likely would be Dr. Baumann. Final cultures are still pending. He will be getting a PICC line. Met with patient in his room, briefly discussed longer term IV ABO. Stated, he was hoping to go home on oral ABO. Discussed the home meds, and [facility], indicating that they would run his medication through his insurance. Did also mention that they would provide the medications, and would do the teaching. Stated, he would discuss this further with his . His concerns are being able to go back to work. Let him know that this can be discussed with hospitalist, he is on his feet at work, indicated that his job is not strenous. P: Will go ahead and send this referral over to [facility], for review, will send the med list and see if they can run this through his insurance. Medication should be q 24 hours according to hospitalist. Rachel Franco RN/Consultant In [employer]
[2024-01-18 15:38] VITALS: BP 140/93; PULSE 82; RESP 16; TEMP 36.6; O2SAT 98
--- NOTE | 2024-01-18 18:50 | PM.PN.1 ---
Subjective Subjective Interval history: LE cellulitis slowly improving. Blood cultures growing group C strep. Spoke with ID and will need 2 weeks of IV abx. Exam Vital Signs (past 8 hours): - 01/18/24 11:44 01/18/24 15:38 Temperature 97.2 F L 97.8 F Pulse Rate 79 82 Respiratory Rate 20 16 Blood Pressure 129/86 140/93 H Pulse Oximetry 98 98 Oxygen Flow Rate 0 0 Oxygen Delivery Method Room Air Oxygen Flow Rate 0 Narrative Exam Narrative: GENERAL: This is a well-nourished, well-developed patient, in no apparent distress. EYES: Pupils equal round and reactive. Extraocular motions intact. No scleral icterus. No injection or drainage. ENT: Mucous membranes pink and moist. NECK: Supple, nontender, no meningeal signs. CARDIOVASCULAR: Regular rate and rhythm without murmurs, gallops, or rubs. RESPIRATORY: Clear to auscultation. GASTROINTESTINAL: Abdomen soft, non-tender, nondistended. EXTREMITIES: 1+ right-sided edema, trace left-sided edema BACK: Nontender without deformity or crepitance. No flank tenderness. NEUROLOGIC: Alert, oriented, speech fluent, full upper and lower motor strength, no focal deficits evident. DERMATOLOGIC: Improving cellulitis with erythema and induration from the right ankle, where he has multiple excoriations in the right distal lateral ayon. He also has erythematous and excoriated change between the toes, though there is a clear gap of normal skin between this and his rash from the ankle, which extends to the proximal calf and ayon and notable for streaking and tenderness of the medial thigh. No right groin adenopathy. Objective Labs 01/18/24 04:43 01/18/24 04:43 Labs: Laboratory Results - last 24 hr 01/18/24 04:43 WBC 5.8 RBC 4.65 Hgb 14.2 Hct 41.6 MCV 89.3 MCH 30.5 MCHC 34.1 RDW 13.7 Plt Count 208 Neut % (Auto) 62.9 Lymph % (Auto) 19.0 L [place] % (Auto) 13.7 Eos % (Auto) 3.7 Baso % (Auto) 0.7 Neut # (Auto) 3600 Lymph # (Auto) 1100 [place] # (Auto) 800 Eos # (Auto) 200 Baso # (Auto) 0 Sodium 138 Potassium 3.8 Chloride 106 Carbon Dioxide 26 BUN 14 Creatinine 0.85 Estimated GFR > 60 BUN/Creatinine Ratio 16.5 Glucose 95 Calcium 9.3 PFSH Social History household members: significant other Smoking Status: Never smoker alcohol intake: current Assessment & Plan Assessment & Plan narrative: 1. Right leg cellulitis, present on admission and active. Increased swelling and pain noted on the right. Negative screen for MRSA. 2. Group C strep bacteremia. / bottles positive. Spoke with ID and this is a real result likely from cellulitis. Will need 2 weeks IV rocephin. 3. Obesity class 1 with BMI of 31, present on admission and active. Plan: -repeat blood cultures negative at 24 hours -will need midline on 01/18 -setup outpatient IV abx for 2 weeks to finish on 01/30, then f/up with ID in clinic -no DVT on LE US -elevate leg. -his former primary care provider is in [place]. He will need a local primary care provider for follow-up. Dispo: Home in 1-2 days. COVID-19 COVID-19 status: Not tested
[2024-01-18 19:35] VITALS: BP 135/77; PULSE 85; RESP 19; TEMP 36.6; O2SAT 98
[2024-01-18 23:54] VITALS: BP 137/87; PULSE 77; RESP 17; TEMP 36.7; O2SAT 98
[2024-01-19 04:44] VITALS: BP 114/78; PULSE 79; RESP 16; TEMP 36.9; O2SAT 98
[2024-01-19 05:04] LABS: Add Manual Diff / Slide Review NO; Basophils Absolute Auto 100 /uL (0-100); Eosinophils Absolute Auto 200 /uL (0-450); Eosinophils Percent Auto 4.2 % (2-4); Hematocrit 43.4 % (41-53); Hemoglobin 14.8 g/dL (13.5-17.5); Lymphocytes Absolute Auto 1200 /uL (1100-4500); Lymphocytes Percent Auto 21.3 % (25-40); Mean Corpuscular HGB Conc 34.2 % (30-36); Mean Corpuscular Hemoglobin 30.2 PG (26-34); Mean Corpuscular Volume 88.3 fL (80-100); Monocytes Absolute Auto 700 /uL (0-900); Monocytes Percent Auto 12.4 % (3-14); Neutrophils Absolute Auto 3500 /uL (1500-7000); Neutrophils Percent Auto 61.1 % (50-75); Platelet Count 240 X10^3/uL (150-400); Red Blood Cell Count 4.92 X10^6/uL (4.5-5.9); Red Cell Distribution Width 13.7 % (11.6-14.8); White Blood Cell Count 5.7 X10^3/uL (4.5-11.0)
[2024-01-19 05:25] LABS: BUN Creatinine Ratio 23.1 (6-22); Blood Urea Nitrogen 21 mg/dL (9-20); Calcium 9.5 mg/dL (8.4-10.2); Carbon Dioxide 29 mmol/L (22-32); Chloride 104 mmol/L (98-107); Estimated Glomerular Filt Rate > 60 mL/min (>60); Glucose 110 mg/dL (70-100); HEMOLYSIS < 15 (0-50); Sodium 137 mmol/L (137-145)
[2024-01-19 08:00] VITALS: BP 121/84; PULSE 74; RESP 20; TEMP 36.9; O2SAT 98
--- NOTE | 2024-01-19 08:03 | PM.PN.1 ---
Subjective Subjective Interval history: Leg is improved today, less red. Blood cultures are negative from the 2nd set. He denies any pain or dyspnea. Midline is ordered for IV access for ongoing outpatient antibiotics. Exam Vital Signs (past 8 hours): - 01/19/24 04:44 Temperature 98.4 F Pulse Rate 79 Respiratory Rate 16 Blood Pressure 114/78 Pulse Oximetry 98 Oxygen Flow Rate 0 Oxygen Delivery Method Room Air Oxygen Flow Rate 0 Narrative Exam Narrative: NAD, alert and oriented. Fluent speech. Lungs are clear, normal rate and effort. Heart is regular, no murmur gallop or rub. Abdomen is soft, non distended. Extremities are free of edema. The right leg is less red. They are still anterior redness and warmth. This is improved and less surface areas covered. There is no fluctuance. Objective Labs 01/19/24 04:38 01/19/24 04:38 Labs: Laboratory Results - last 24 hr 01/19/24 04:38 WBC 5.7 RBC 4.92 Hgb 14.8 Hct 43.4 MCV 88.3 MCH 30.2 MCHC 34.2 RDW 13.7 Plt Count 240 Neut % (Auto) 61.1 Lymph % (Auto) 21.3 L [place] % (Auto) 12.4 Eos % (Auto) 4.2 H Baso % (Auto) 1.0 Neut # (Auto) 3500 Lymph # (Auto) 1200 [place] # (Auto) 700 Eos # (Auto) 200 Baso # (Auto) 100 Sodium 137 Potassium 4.0 Chloride 104 Carbon Dioxide 29 BUN 21 H Creatinine 0.91 Estimated GFR > 60 BUN/Creatinine Ratio 23.1 H Glucose 110 H Calcium 9.5 PFSH Social History household members: significant other Smoking Status: Never smoker alcohol intake: current Assessment & Plan Assessment & Plan narrative: 1. Right leg cellulitis, present on admission and active. Increased swelling and pain noted on the right. Negative screen for MRSA. 2. Group C strep bacteremia. 1/ bottles positive. Spoke with ID and this is a real result likely from cellulitis. Will need 2 weeks IV rocephin. 3. Obesity class 1 with BMI of 31, present on admission and active. Plan: -we will place [facility] on 01/18 -setup outpatient IV abx for 2 weeks to finish on 01/30, then f/up with ID in clinic. Ceftriaxone Q 24 hours. -no DVT on LE US -elevate leg. -his former primary care provider is in [place]. He will need a local primary care provider for follow-up. Dispo: Home in 1 day.
[2024-01-19] MEDS: ENOXAPARIN 40 MG/0.4 ML SYRINGE SUBCUT (08:27)
[2024-01-19] MEDS: cefTRIAXone 2,000 MG in SODIUM CHLORIDE 0.9% 100 ML 200 MG IV (08:28)
[2024-01-19] MEDS: OXYCODONE IR 10 MG TABLET PO ×3 (08:28→20:26)
[2024-01-19 12:00] VITALS: BP 117/80; PULSE 77; RESP 18; TEMP 37.1; O2SAT 98
--- NOTE | 2024-01-19 14:39 | CM.DPNOTE ---
DCP Note PAINT ROLLER WINDER reviewed EMR. Per hospitalist, medically cleared to dc today if IV abx plan in place. From José Antonio at [facility], pt's abx covered by insurance. Got order directly from [facility]. José Antonio spoke with pt and current plan is for pt to go to their clinic in [place] to p/u materials/learn instructions at 1pm Friday. Need script, dc sum, and PICC or Mid report faxed to them when available. Per RN/transmitter engineer in charge, attempting to get outside agency to come place PICC/midline. They will be here approx 10pm-11pm. If agency unable, Obdulia RN will be here tomorrow morning to place access line. PAINT ROLLER WINDER met with pt in room. Pt hesitant about disclosing his current physical address/specifics on his living situation. Pt reports he has ability to keep iv abx equip clean/in fridge/stored appropriately. Pt denies other CM needs at this time. Pt reports understanding of remaining another night for PICC/midline. Pt in verbal agreement with this plan. Provider signed work excuse form, PAINT ROLLER WINDER placed in pt's physical chart with dc ppwk. Plan: pt will get IV abx dose tomorrow 9am, to dc at 10am. CM team will send dc sum/midline report/script to [facility]. CM team will follow closely. JESS Langford
[2024-01-19 16:00] VITALS: BP 128/88; PULSE 72; RESP 20; O2SAT 98
[2024-01-19 20:00] VITALS: BP 124/86; PULSE 79; RESP 18; TEMP 36.4; O2SAT 99
[2024-01-20] VITALS: BP 122/75; PULSE 70; RESP 18; TEMP 36.8; O2SAT 98
[2024-01-20] MEDS: OXYCODONE IR 10 MG TABLET PO ×2 (00:20→05:19)
[2024-01-20 05:00] VITALS: BP 108/70; PULSE 80; RESP 17; TEMP 37.2; O2SAT 98
[2024-01-20] MEDS: ACETAMINOPHEN 325 MG TABLET 650 MG PO (05:18)
[2024-01-20 05:24] LABS: Add Manual Diff / Slide Review NO; Basophils Absolute Auto 100 /uL (0-100); Basophils Percent Auto 0.9 % (0-2); Eosinophils Absolute Auto 300 /uL (0-450); Eosinophils Percent Auto 4.1 % (2-4); Hematocrit 44.2 % (41-53); Hemoglobin 15.1 g/dL (13.5-17.5); Lymphocytes Absolute Auto 1500 /uL (1100-4500); Lymphocytes Percent Auto 24.7 % (25-40); Mean Corpuscular HGB Conc 34.2 % (30-36); Mean Corpuscular Hemoglobin 30.5 PG (26-34); Mean Corpuscular Volume 89.2 fL (80-100); Monocytes Absolute Auto 900 /uL (0-900); Monocytes Percent Auto 13.9 % (3-14); Neutrophils Absolute Auto 3500 /uL (1500-7000); Neutrophils Percent Auto 56.4 % (50-75); Platelet Count 256 X10^3/uL (150-400); Red Blood Cell Count 4.96 X10^6/uL (4.5-5.9); Red Cell Distribution Width 13.8 % (11.6-14.8); White Blood Cell Count 6.2 X10^3/uL (4.5-11.0)
[2024-01-20 05:34] LABS: BUN Creatinine Ratio 19.5 (6-22); Blood Urea Nitrogen 17 mg/dL (9-20); Calcium 9.5 mg/dL (8.4-10.2); Carbon Dioxide 25 mmol/L (22-32); Chloride 104 mmol/L (98-107); Estimated Glomerular Filt Rate > 60 mL/min (>60); Glucose 106 mg/dL (70-100); HEMOLYSIS < 15 (0-50); Potassium 4.3 mmol/L (3.4-5.1); Sodium 136 mmol/L (137-145)
[2024-01-20] MEDS: ENOXAPARIN 40 MG/0.4 ML SYRINGE SUBCUT (08:20)
[2024-01-20] MEDS: cefTRIAXone 2,000 MG in SODIUM CHLORIDE 0.9% 100 ML 200 MG IV (08:21)
[2024-01-20] MEDS: SODIUM CHLORIDE 0.9% FLUSH 10 ML IV (08:22)
--- NOTE | 2024-01-20 08:39 | P.DS_ITS ---
History of Present Illness History of Present Illness Date Patient Seen: 01/20/24 Time Patient Seen: 08:40 Chief complaint: rt leg swelling, possible spider bites Narrative: Per admtiting provider, 48 y/o wo significant PMH, presented to ED with swollen, tender and erythematous RLE. Has several puncture wounds that he blames spiders for. Swelling appeared 2 weeks ago and gradually worsened. He had low grade fever, no chills. Admitted for IV abx. Discharge Providers Provider Date of admission: 01/16/24 16:15 Discharge Date: 01/20/24 Discharge provider: Saul Talley DO Summary Hospital Course Discharge Diagnosis: 1. Right leg cellulitis, present on admission and active. 2. Group C strep bacteremia. 1/4 bottles positive. 3. Obesity class 1 with BMI of 31, present on admission and active. Hospital Course: This is a 48 year old male who was admitted for a R leg cellulitis. Blood cultures grew 1/4 bottles of Group C strep. After discussion with infectious disease over the phone, recommended treatment with 2 weeks of IV ceftriaxone for preumptive positive blood culture. Repeat blood cultures were negative. End date of antibiotics will be 01/30, and patient will follow up with infectious disease as an outpatient. Midline was placed and outpatient antibiotics were arranged. His swelling improved, though he did have continued pain and was prescribed oxycodone on discharge. Time Spent with Patient Time spent: Greater than 30 minutes Exam Vital Signs (past 8 hours): - 01/20/24 05:00 Temperature 99 F Pulse Rate 80 Respiratory Rate 17 Blood Pressure 108/70 Pulse Oximetry 98 Oxygen Flow Rate 0 Oxygen Delivery Method Room Air Oxygen Flow Rate 0 Narrative Exam Narrative: NAD, alert and oriented. Fluent speech. Lungs are clear, normal rate and effort. Heart is regular, no murmur gallop or rub. Abdomen is soft, non distended. Extremities are free of edema. The right leg is less red. They are still anterior redness and warmth though much improved. There is no fluctuance. Objective Labs 01/20/24 04:52 01/20/24 04:52 Labs: Laboratory Results - last 24 hr 01/20/24 04:52 WBC 6.2 RBC 4.96 Hgb 15.1 Hct 44.2 MCV 89.2 MCH 30.5 MCHC 34.2 RDW 13.8 Plt Count 256 Neut % (Auto) 56.4 Lymph % (Auto) 24.7 L [place] % (Auto) 13.9 Eos % (Auto) 4.1 H Baso % (Auto) 0.9 Neut # (Auto) 3500 Lymph # (Auto) 1500 [place] # (Auto) 900 Eos # (Auto) 300 Baso # (Auto) 100 Sodium 136 L Potassium 4.3 Chloride 104 Carbon Dioxide 25 BUN 17 Creatinine 0.87 Estimated GFR > 60 BUN/Creatinine Ratio 19.5 Glucose 106 H Calcium 9.5 PFSH Social History household members: significant other Smoking Status: Never smoker alcohol intake: current Discharge Plan Discharge Plan Patient Disposition: Home Provider Discharge Comment: You were admitted to the hospital with cellulitis, improved. Blood cultures positive for bacteria, this will be treated for 2 weeks with IV antibiotics. Please follow up with infectious disease clinic as scheduled. Discharge orders & Medications Prescriptions: New ceftriaxone 2 gram recon soln 2 g IM DAILY Qty: 10 0RF oxycodone 10 mg tablet 10 mg PO Q6H PRN (Reason: pain) 7 Days Qty: 28 0RF Diet/Activity/Treatments Diet: Diet as Tolerated and Regular Activity: As tolerated, no restrictions Visit Report/Discharge Packet Instructions: DI for Cellulitis -- Adult, DI for Prescription Opioid Use, Oxycodone, Ceftriaxone Injection Stand Alone Forms: Patient Portal/API, Stroke Signs & Symptoms
[2024-01-20 09:00] VITALS: BP 112/71; PULSE 72; RESP 20; TEMP 36.4; O2SAT 100
--- NOTE | 2024-01-20 10:18 | PC.NURSE ---
Pt is dressed and ready for discharge home. Peripheral IV has been removed. Midline IV to stay intact for 2 weeks of Outpatient IV abx. Care for his IV has been set up through [facility]. Went over d/c instructions with Pt-discussed d/c meds, time of last dose, reviewed stroke education, encouraged Pt to elevate RLE and to drink plenty of fluids to prevent constipation or dehydration. Pt reports that he has not had a bm since last week. Offered prune juice or medication to move bowels and Pt declined. Pt declined further questions and will be taken out to POV via w/c by [employer] with all belongings.
--- NOTE | 2024-01-20 10:36 | CM.DPNOTE ---
DCP Note SET STAFF FITTER reviewed EMR. Hospitalist dc'd pt early this morning. Per chart review, Midline was placed last night. SET STAFF FITTER faxed copy of script/midline report to [facility] (f [phone]). SET STAFF FITTER lvm with José Antonio (p [phone]). SET STAFF FITTER met with pt in room. Confirmed agreeable to plan. Eager to dc. Plan: pt dc'd today home with midline and [facility] following. Pt will meet with [facility] nurse at clinic for teaching/to get materials. Pt will f/u with Dr. Paulino after abx stop date. CM team will continue to follow as needed. JESS Langford
== END 2024-01-20 10:27 | disposition home or self-care (01) | DRG 383 ==
LOC: ED 19:46 → AC 01-15 01:26
PROVIDERS: Hospitalist; Student in an Organized Health Care Education/Training Program; Admitting Provider Internal Medicine; Emergency Provider Emergency Medicine; Referring Provider Emergency Medicine; Visit Provider Internal Medicine
DX: L03.115 Cellulitis of right lower limb (principal); R78.81 Bacteremia; B95.4 Other streptococcus as the cause of diseases classified elsewhere; E66.9 Obesity, unspecified; Z68.31 Body mass index [BMI] 31.0-31.9, adult
CPT/HCPCS: 36415; 71045; 80048; 80053; 80202; 80305; 81003; 81015; 83605; 83690; 84145; 85025; 85610; 85730; 87040; 87154; 87797; 93971; 96365; 96366; 96367; 96375; 99284; G0378; J0136; J0696; J1650; J1885; J2405

== ENCOUNTER → 2024-02-04 10:08 | Outpatient (CLI) | payer OTHER, MEDICAID, SELFPAY ==
[2024-01-14 23:56] VITALS: BMI 31.3
--- NOTE | 2024-02-04 10:13 | DI.CT.S_ITS ---
PROCEDURE: CT LE RT W CON INDICATIONS: Cellulitis, unspecified TECHNIQUE: After the administration of intravenous contrast, 3 mm axial sections acquired of the left lower leg from the level of distal femoral shaft to bottom of the foot, with coronal and sagittal reformats. COMPARISON: None. FINDINGS: Image quality: Excellent. Bones: Alignment of left lower leg is anatomic. No fracture or dislocation. Mild left knee and left foot osteoarthritic changes are seen with joint space narrowing and subchondral sclerosis. No suspicious bony lesions. No bony erosion or area of abnormal periosteal reaction. Soft tissues: There is diffuse subcutaneous soft tissue edema and swelling throughout lower leg extending to midfoot and hindfoot. No discrete peripherally enhancing fluid collection is noted. No abnormal soft tissue calcification is seen. No significant joint effusion or calcified intra-articular loose bodies. No full-thickness tendon or muscle rupture. No enhancing soft tissue mass . IMPRESSION: 1. Suggestion of mild cellulitis throughout left lower leg extending to left foot. No discrete drainable abscess collection. No enhancing soft tissue mass. No full-thickness tendon or muscle rupture. 2. 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 No fracture or dislocation. No suspicious bony lesion. No CT evidence of osteomyelitis Dictated by: Inder Castillo M.D. on 02/04/2024 at 13:51 Approved by: Inder Castillo M.D. on 02/04/2024 at 13:55
== END ==
LOC: CT 10:09
PROVIDERS: Referring Provider Internal Medicine Infectious Disease; Visit Provider Internal Medicine Infectious Disease
DX: L03.90 Cellulitis, unspecified (principal); M17.12 Unilateral primary osteoarthritis, left knee; M19.072 Primary osteoarthritis, left ankle and foot; R78.81 Bacteremia; B95.5 Unspecified streptococcus as the cause of diseases classified elsewhere
CPT/HCPCS: 73701; Q9967

== ENCOUNTER 2024-03-07 12:52 | Emergency (ER) | payer OTHER, MEDICAID, SELFPAY ==
[2024-01-14 23:56] VITALS: BMI 31.3
[2024-03-07 12:57] VITALS: BP 163/86; PULSE 66; RESP 16; TEMP 36.9; O2SAT 99; BMI 29.6
[2024-03-07 13:12] LABS: UR Morphine/Opiate cutoff 300 Negative (Negative); Ur Creatinine Normal (Normal); Ur Specific Gravity Normal (Normal); Urine Amphetamines Negative (Negative); Urine Barbiturates Negative (Negative); Urine Benzodiazepines Negative (Negative); Urine Cocaine Negative (Negative); Urine MDMA Negative (Negative); Urine Methadone Negative (Negative); Urine Methamphetamines Negative (Negative); Urine Oxycodone Negative (Negative); Urine Phencyclidine Negative (Negative); Urine Tetrahydrocannabinol Positive (Negative); Urine Tricyclic Antidepressant Negative (Negative); Urine pH Normal (Normal)
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
== END 2024-03-07 18:23 | disposition home or self-care (01) ==
PROVIDERS: Emergency Medicine; Emergency Provider Emergency Medicine
DX: R41.3 Other amnesia (principal)
CPT/HCPCS: 80305; 99281; 99283